=== PATIENT | male | born 1945 | race Caucasian/White ===

== ENCOUNTER 2019-06-18 11:36 | Outpatient (CLI) | payer MEDICARE | END 2019-06-18 11:37 | disposition home or self-care (01) | LOC: DI 11:36 | PROVIDERS: ATTEND Internal Medicine | DX: R01.1 Cardiac murmur, unspecified (principal); I35.0 Nonrheumatic aortic (valve) stenosis; I10 Essential (primary) hypertension; I51.7 Cardiomegaly | CPT/HCPCS: 93306 ==